=== PATIENT | male | born 1990 | race Caucasian/White ===

== ENCOUNTER 2019-11-21 22:05 | Emergency (ER) | payer BC, OTHER ==
[2019-11-21] MEDS ORDERED: Bacitracin Oint 1 GM U/D Packet TOP ONE (22:22)
[2019-11-21] MEDS ORDERED: Lidocaine 1% with EPINEPHrine 1:100,000 50 ML MDV SUBCUT STA (22:22)
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
[2019-11-21] MEDS ORDERED: Diphtheria,Pertussis(Acell),Tetanus Vaccine 0.5 ML SDV IM ONE (23:14)
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
[2019-11-21] MEDS ORDERED: Acetaminophen 325 MG Tab PO ONE (23:24)
== END 2019-11-22 07:05 | disposition home or self-care (01) ==
LOC: JP.ED 22:05
DX: S06.0X1A Concussion with loss of consciousness of 30 minutes or less, initial encounter (principal); S81.012A Laceration without foreign body, left knee, initial encounter; S40.212A Abrasion of left shoulder, initial encounter; S50.312A Abrasion of left elbow, initial encounter; Z23 Encounter for immunization; V86.56XA Driver of dirt bike or motor/cross bike injured in nontraffic accident, initial encounter
CPT/HCPCS: 12002; 70450; 90471; 90715; 99284; A9270